=== PATIENT | female | born 1965 | race Asian ===

== ENCOUNTER 2017-06-04 02:24 | Emergency (ER) | payer SELFPAY ==
[2017-06-04] MEDS ORDERED: ONDANSETRON DISINTEGRATING 4 MG TAB ONE (02:42)
[2017-06-04] MEDS ORDERED: ONDANSETRON DISINTEGRATING 4 MG TAB PO ONE (02:42)
--- NOTE | 2017-06-04 02:44 | EDPHY ---
H & P Stated Complaint: CABEZAS, vomiting Time Seen by Provider: 06/04/17 02:34 HPI/ROS: Chief Complaint: Headache, nausea, vomiting HPI: 51-year-old woman visiting from [place] who just arrived here several hours ago. She was in a hotel after eating had the onset of headache, nausea and vomiting several times. Did have some loose stools as well. Patient was given some Excedrin by the hotel staff. Patient states her headache is much better. At its worst headache was a 8/10, now is a 2/10. It is in the frontal and in the back of her head. It was not sudden onset. Not the worst headache of her life. Is currently complaining of some persistent nausea. No fevers or chills. No chest pain or shortness of breath. No numbness or tingling. No vision or hearing changes. No lightheadedness or dizziness ROS: 10 point Review of Systems is negative except as noted in the HPI. PMH: Denies Social History: Denies smokin Family History: non-contributory Physical Exam: Gen: Awake, Alert, No Distress HEENT: Nose: no rhinorrhea Eyes: PERRLA, EOMI Mouth: Moist mucosa Neck: Supple, no JVD Chest: nontender, lungs clear to auscultation Heart: S1, S2 normal, no murmur Abd: Soft, non-tender, no guarding Back: no CVA tenderness, no midline tenderness Ext: no edema, non-tender Skin: no rash Neuro: CN II-XII intact, Sensation grossly intact, Strength 5/5 in bilateral upper and lower extremities - Personal History LMP (Females 10-55): Post Menopausal Current Tetanus/Diphtheria Vaccine: Unsure Constitutional: Initial Vital Signs Temperature (C) 36.5 C 06/04/17 02:27 Heart Rate 71 06/04/17 02:27 Respiratory Rate 24 H 06/04/17 02:27 Blood Pressure 105/73 06/04/17 02:27 O2 Sat (%) 97 06/04/17 02:27 O2 Delivery Mode Room Air Allergies/Adverse Reactions: No Known Allergies Allergy (Unverified 06/04/17 02:27) Home Medications: Medication Instructions Recorded NK [No Known Home Meds] 06/04/17 Medical Decision Making ED Course/Re-evaluation: Patient is improved after some IV fluids and IV Phenergan. No further nausea. She is tolerating p.o.. Headache is gone. Will discharge with follow-up when she returns home, return for worsening. She has no meningeal signs. Headache was not sudden onset. She has not have any risk factors for intracranial bleed or infection. Headache was nearly resolved when she arrived. She is otherwise well-appearing. Neurologically intact. - Data Points Medications Given: Discontinued Medications Acetaminophen (Tylenol) 650 mg PO EDNOW ONE Stop: 06/04/17 03:10 Last Admin: 06/04/17 03:11 Dose: 650 mg Sodium Chloride (Ns) 1,000 mls @ 0 mls/hr IV ONCE ONE PRN Reason: Wide Open Stop: 06/04/17 03:21 Last Admin: 06/04/17 03:25 Dose: 1,000 mls Ondansetron HCl (Zofran Odt) 4 mg PO EDNOW ONE Stop: 06/04/17 02:43 Last Admin: 06/04/17 02:43 Dose: 4 mg Promethazine HCl (Phenergan) 12.5 mg IVP ONCE ONE Stop: 06/04/17 03:19 Last Admin: 06/04/17 03:25 Dose: 12.5 mg Departure - Departure Disposition: Home, Routine, Self-Care Clinical Impression: Headache, Vomiting Condition: Good Instructions: General Headache (ED), Acute Nausea and Vomiting (ED) Additional Instructions: Drink plenty of fluids. Return to the emergency department for increasing headache, fevers, chills, neck pain, stiffness, or any other concerns.
[2017-06-04] MEDS ORDERED: ACETAMINOPHEN 325 MG TAB ONE (03:07)
[2017-06-04] MEDS ORDERED: ACETAMINOPHEN 325 MG TAB PO ONE (03:09)
[2017-06-04] MEDS ORDERED: PROMETHAZINE HCL 25 MG/ML INJ IVP ONE (03:18)
[2017-06-04] MEDS ORDERED: NS 1,000 ML IV ONE (03:20)
[2017-06-04 04:35] VITALS: BP 109/54; PULSE 54; RESP 16; TEMP 97.9; O2SAT 96
== END 2017-06-04 04:36 | disposition home or self-care (01) ==
DX: R51 Headache (principal); R11.10 Vomiting, unspecified
CPT/HCPCS: 96374; J2550